=== PATIENT | female | born 1930 | race Caucasian/White ===

== ENCOUNTER 2021-02-27 15:08 | Emergency (ER) | payer MEDICARE, OTHER ==
[2021-02-27 15:55] LABS: BASOPHIL 0.3 % (0-2); EOSINOPHIL 0.8 % (0-7); HCT 42.7 % (37.0-47.0); HGB 13.6 g/dl (12.5-16.0); LYMPHOCYTE 19.3 % (15-48); MCHC 31.9 g/dL (32.0-36.0); MCV 94.1 fL (78.0-100.0); MONOCYTE 4.2 % (0-12); MPV 12.2 fL (6.0-9.5); NEUTROPHIL 74.9 % (41-80); NRBC 0; PLT 188 K/uL (150-400); RBC 4.54 M/uL (4.20-5.40); RDW 13.4 % (11.5-14.0); WBC 10.1 K/uL (4.0-10.5)
[2021-02-27 16:13] LABS: ALBUMIN 3.6 g/dL (3.4-5.0); ALKALINE PHOSHATASE 88 U/L (46-116); ALT 14 U/L (14-59); AST 28 U/L (15-37); BILIRUBIN - TOTAL 0.6 mg/dL (0.2-1.0); BUN 17 mg/dL (7-18); BUN/CREAT RATIO (CALC) 15.3 RATIO; CHLORIDE 107 mmol/L (98-107); CO2 (BICARBONATE) 24 mmol/L (21-32); CREATININE 1.11 mg/dL (0.51-0.95); GLOBULIN (CALCULATION) 3.7 g/dL; GLUCOSE 128 mg/dL (74-106); POTASSIUM 4.2 mmol/L (3.5-5.1); TOTAL PROTEIN 7.3 g/dL (6.4-8.2)
[2021-02-27 16:14] LABS: AMPHETAMINES NEGATIVE (NEGATIVE); BARBITURATES NEGATIVE (NEGATIVE); ECSTASY (MDMA) NEGATIVE (NEGATIVE); MARIJUANA (THC) NEGATIVE (NEGATIVE); METHADONE NEGATIVE (NEGATIVE); OPIATES NEGATIVE (NEGATIVE); OXYCODONE NEGATIVE (NEGATIVE)
[2021-02-27 16:15] LABS: BILIRUBIN NEGATIVE (NEGATIVE); BLOOD TRACE-INTACT Ery/uL (NEGATIVE); CLARITY CLOUDY (CLEAR); COLOR YELLOW (YELLOW); GLUCOSE (U) NORMAL (NORMAL); LEUKOCYTES 3+ Leu/uL (NEGATIVE); NITRITE NEGATIVE (NEGATIVE); PROTEIN NEGATIVE (NEGATIVE); UROBILINOGEN 0.2 mg/dL (0.2-1.0)
[2021-02-27 16:22] LABS: BACTERIA 4+; SQUAMOUS EPITHELIAL CELLS RARE; URINARY RBC RARE; URINARY WBC TNTC
[2021-02-27 16:26] LABS: LACTIC ACID 2.7 mmol/L (0.4-1.9)
[2021-02-27] MEDS ORDERED: BACTRIM DS TAB1 EACH PO (19:00)
== END 2021-02-27 19:25 | disposition home or self-care (01) ==
LOC: FER 15:08
PROVIDERS: Emergency Medicine
DX: N39.0 Urinary tract infection, site not specified (principal); J98.11 Atelectasis; F03.90 Unspecified dementia, unspecified severity, without behavioral disturbance, psychotic disturbance, mood disturbance, and anxiety; K21.9 Gastro-esophageal reflux disease without esophagitis; Z79.899 Other long term (current) drug therapy; Z88.0 Allergy status to penicillin
CPT/HCPCS: 36415; 70450; 71045; 80053; 80305; 81001; 83605; 84484; 85025; 87076; 87088; 87186; 93005; G0480; J2405; J7030

== ENCOUNTER 2021-10-10 00:42 | Emergency (ER) | payer MEDICARE, OTHER ==
[~2021-10-10 00:42] MED LIST: BACTRIM DS TAB1 EACH PO
[2021-10-10 01:54] LABS: BILIRUBIN NEGATIVE (NEGATIVE); BLOOD NEGATIVE Ery/uL (NEGATIVE); CLARITY CLEAR (CLEAR); COLOR YELLOW (YELLOW); GLUCOSE (U) NORMAL (NORMAL); LEUKOCYTES NEGATIVE Leu/uL (NEGATIVE); NITRITE NEGATIVE (NEGATIVE); PROTEIN NEGATIVE (NEGATIVE); SPECIFIC GRAVITY 1.025 (1.001-1.030); pH 6.5 (5.0-9.0)
[2021-10-10 02:06] LABS: BASOPHIL 0.2 % (0-2); EOSINOPHIL 0.4 % (0-7); HCT 41.5 % (37.0-47.0); HGB 13.6 g/dl (12.5-16.0); LYMPHOCYTE 7.2 % (15-48); MCH 30.4 pg (25.0-31.0); MCHC 32.8 g/dL (32.0-36.0); MCV 92.6 fL (78.0-100.0); MONOCYTE 4.5 % (0-12); MPV 11.5 fL (6.0-9.5); NEUTROPHIL 87.4 % (41-80); NRBC 0; PLT 215 K/uL (150-400); RBC 4.48 M/uL (4.20-5.40); RDW 13.4 % (11.5-14.0); WBC 12.6 K/uL (4.0-10.5)
[2021-10-10 02:26] LABS: CREATININE 1.12 mg/dL (0.51-0.95); POTASSIUM 4.1 mmol/L (3.5-5.1)
== END 2021-10-10 03:35 | disposition home or self-care (01) ==
LOC: FER 00:42
PROVIDERS: Internal Medicine
DX: M25.561 Pain in right knee (principal); M25.551 Pain in right hip; I10 Essential (primary) hypertension; F03.90 Unspecified dementia, unspecified severity, without behavioral disturbance, psychotic disturbance, mood disturbance, and anxiety; K21.9 Gastro-esophageal reflux disease without esophagitis; Z88.0 Allergy status to penicillin; Z79.899 Other long term (current) drug therapy; W19.XXXA Unspecified fall, initial encounter; Y92.009 Unspecified place in unspecified non-institutional (private) residence as the place of occurrence of the external cause
CPT/HCPCS: 36415; 70450; 72192; 73560; 80048; 81003; 85025

== ENCOUNTER 2021-12-25 13:41 | Emergency (ER) | payer MEDICARE, OTHER | END 2021-12-25 15:17 | disposition home or self-care (01) | LOC: FER 13:41 | DX: F03.90 Unspecified dementia, unspecified severity, without behavioral disturbance, psychotic disturbance, mood disturbance, and anxiety (principal); Z88.0 Allergy status to penicillin | CPT/HCPCS: 99284 ==